=== PATIENT | male | born 1955 | race Two or more races ===

== ENCOUNTER 2016-05-19 15:03 | Inpatient (IN) | payer SELFPAY ==
[~2016-05-19] VITALS: Ht 193 cm; Wt 134.2 kg
[2016-05-19 19:33] LABS: Basophils # (auto) 0 uL; Basophils % (auto) 0.5 % (0.0-2.0); Eosinophils # (auto) 0.1 uL; Eosinophils % (auto) 1.2 % (0.0-7.0); Hematocrit 45.5 % (41.0-53.0); Lymphocytes # (auto) 1.4 uL; Lymphocytes % (auto) 20.9 % (10.0-50.0); Mean Corpuscular Hemoglobin 29.8 pg (28.0-32.0); Mean Corpuscular Hgb Conc. 32.9 g/dL (32.0-36.0); Mean Corpuscular Volume 90.3 fL (80.0-100.0); Mean Platelet Volume 7.9 fL (7.4-10.4); Monocytes # (auto) 0.5 uL; Monocytes % (auto) 7.6 % (0.0-12.0); Neutrophils # (auto) 4.7 uL; Neutrophils % (auto) 69.8 % (37.0-80.0); Platelet Count (auto) 324 10^3/uL (140-450); Red Cell Distribution Width 13.9 % (11.6-16.0); White Blood Cell 6.8 10^3/uL (4.4-10.8)
[2016-05-19 19:34] LABS: Albumin 3.7 g/dL (3.4-5.0); Anion Gap 10 (5-15); Aspartate Aminotransferase 19 U/L (15-37); BUN/Creatinine Ratio 19.5; Blood Urea Nitrogen 16 mg/dL (7-18); Calcium 8.2 mg/dL (8.5-10.1); Carbon Dioxide 23 mmol/L (21-32); Chloride 110 mmol/L (98-107); GFR African American 124 mL/min; GFR Non-African American 102 mL/min; Glucose 112 mg/dL (74-106); Potassium 3.6 mmol/L (3.5-5.1); Sodium 143 mmol/L (136-145)
[2016-05-19 19:39] LABS: Alkaline Phosphatase 90 U/L (45-117); Total Protein 7.2 g/dL (6.4-8.2)
[2016-05-19 19:49] LABS: INR 1.04 (0.9-1.15); Partial Thromboplastin Time 28.2 sec (22.64-33.71); Prothrombin Time 10.7 sec (9.37-12.3)
[2016-05-19] MEDS ORDERED: HYDROcodone-ACET 5/325MG TAB PO ONE (21:15)
[2016-05-19] MEDS ORDERED: TEMAZEPAM 15 MG CAP PO PRN (21:45)
[2016-05-19] MEDS ORDERED: ONDANSETRON HCL 4 MG/2 ML VIAL IV PRN (21:45)
[2016-05-19] MEDS ORDERED: ACETAMINOPHEN 325 MG TAB PO PRN (21:45)
[2016-05-20] MEDS: FAMOTIDINE 20 MG TAB PO SCH ×3 (02:51→21:54)
[2016-05-20 05:00] VITALS: BP 136/85
[2016-05-20 05:56] LABS: Basophils # (auto) 0 uL; Basophils % (auto) 0.4 % (0.0-2.0); Eosinophils # (auto) 0.1 uL; Eosinophils % (auto) 1.8 % (0.0-7.0); Hematocrit 43.8 % (41.0-53.0); Hemoglobin 14.7 g/dL (13.5-17.5); Lymphocytes # (auto) 1.7 uL; Lymphocytes % (auto) 27.6 % (10.0-50.0); Mean Corpuscular Hemoglobin 30.3 pg (28.0-32.0); Mean Corpuscular Hgb Conc. 33.5 g/dL (32.0-36.0); Mean Corpuscular Volume 90.4 fL (80.0-100.0); Mean Platelet Volume 7.8 fL (7.4-10.4); Monocytes # (auto) 0.6 uL; Monocytes % (auto) 9.6 % (0.0-12.0); Neutrophils # (auto) 3.6 uL; Neutrophils % (auto) 60.6 % (37.0-80.0); Platelet Count (auto) 291 10^3/uL (140-450); Red Cell Distribution Width 13.9 % (11.6-16.0)
[2016-05-20 06:15] LABS: Albumin 3.3 g/dL (3.4-5.0); Anion Gap 11 (5-15); Aspartate Aminotransferase 16 U/L (15-37); BUN/Creatinine Ratio 18.1; Blood Urea Nitrogen 13 mg/dL (7-18); Calcium 7.7 mg/dL (8.5-10.1); Carbon Dioxide 23 mmol/L (21-32); Chloride 108 mmol/L (98-107); GFR African American 144 mL/min; GFR Non-African American 119 mL/min; Glucose 86 mg/dL (74-106); Potassium 3.6 mmol/L (3.5-5.1); Sodium 142 mmol/L (136-145)
[2016-05-20 06:20] LABS: Alkaline Phosphatase 84 U/L (45-117); Bilirubin, Total 0.9 mg/dL (0.2-1.0); Total Protein 6.5 g/dL (6.4-8.2)
[2016-05-20 08:00] VITALS: BP 140/90
[2016-05-20] MEDS ORDERED: FLUMAZENIL 0.1 MG/ML INJ 10ML MDV IV ONE (08:33)
[2016-05-20] MEDS ORDERED: SODIUM CHLORIDE LOCK 0 ML ONE (08:34)
[2016-05-20] MEDS ORDERED: EPINEPHrine HCL 1 MG/1 ML AMP ONE (08:34)
[2016-05-20] MEDS ORDERED: LIDOCAINE 2%HCL (LOCAL ANESTH.) INJ 20ML MDV ONE (08:34)
[2016-05-20] MEDS: ASPirin 81 mg TAB PO SCH (10:47)
[2016-05-20 13:00] VITALS: BP 143/88
[2016-05-20 17:00] VITALS: BP 144/81
[2016-05-20 20:00] VITALS: BP 145/89
[2016-05-20] MEDS: HYDROcodone-ACET 5/325MG TAB PO PRN (21:54)
[2016-05-20 22:00] VITALS: BP 145/89
[2016-05-21 05:00] VITALS: BP 140/83
[2016-05-21 08:00] VITALS: BP 137/77
[2016-05-21] MEDS: FAMOTIDINE 20 MG TAB PO SCH ×2 (08:55→21:34)
[2016-05-21] MEDS: ASPirin 81 mg TAB PO SCH (08:55)
[2016-05-21 13:00] VITALS: BP 142/83
[2016-05-21 17:00] VITALS: BP 140/86
[2016-05-21 20:00] VITALS: BP 127/74
[2016-05-21 21:13] VITALS: BP 127/74
[2016-05-21] MEDS: HYDROcodone-ACET 5/325MG TAB PO PRN (21:35)
== END 2016-05-21 22:55 | disposition home or self-care (01) | DRG 312 ==
LOC: ER 15:29 → OVERFLOW 15:30 → CENTRAL 22:44
PROVIDERS: ADMIT Internal Medicine; ATTEND Family Medicine
DX: R55 Syncope and collapse (principal); I10 Essential (primary) hypertension; E66.9 Obesity, unspecified; W18.39XA Other fall on same level, initial encounter; F17.210 Nicotine dependence, cigarettes, uncomplicated; Z83.3 Family history of diabetes mellitus; Z82.49 Family history of ischemic heart disease and other diseases of the circulatory system; Y93.89 Activity, other specified; Y92.488 Other paved roadways as the place of occurrence of the external cause; Y99.8 Other external cause status; Z68.36 Body mass index [BMI] 36.0-36.9, adult
CPT/HCPCS: 36415; 70450; 71010; 73502; 80053; 80320; 84484; 85025; 85610; 85730; 93005; 93886; J0171